=== PATIENT | female | born 1995 | race Caucasian/White ===

== ENCOUNTER 2016-06-08 10:23 | Emergency (ER) | payer OTHER ==
[2016-06-08 11:09] VITALS: BP 104/72
[2016-06-08] MEDS ORDERED: Ibuprofen TAB* 600 MG PO ONE (12:19)
--- NOTE | 2016-06-08 12:22 | UC ---
Throat Pain/Nasal James HPI - HPI Summary HPI Summary: 20 female presents with complaints of sore throat, fever, and headache that began yesterday. Patient has not taken any medications for her symptoms. She took her temperature at home and it was 101F. She has been eating and drinking. Denies cough, abdominal pain, vomiting and diarrhea. Has been exposed to strep. Denies PMHx. - History of Current Complaint Chief Complaint: UCGeneralIllness Stated Complaint: SORE THROAT,FEVER,NAUSEA Time Seen by Provider: 06/08/16 12:01 Hx Obtained From: Patient Hx Last Menstrual Period: 05/04/16 - on OCP ?: No Onset/Duration: Sudden Onset Severity: Moderate Pain Scale Used: 0-10 Numeric Cough: None Associated Signs & Symptoms: Positive: Dysphagia - Allergies/Home Medications Allergies/Adverse Reactions: Allergies Allergy/AdvReac Type Severity Reaction Status Date / Time Penicillins [PCN] Allergy Hives Verified 06/08/16 11:00 Home Medications: Home Medications Levonorgestrel-Ethinyl Estradi [Quartette] 1 tab PO DAILY 06/08/16 [History Confirmed 06/08/16] PMH/Surg Hx/FS Hx/Imm Hx Cardiovascular History Of: Denies: Hypertension Respiratory History Of: Denies: Asthma - Surgical History Surgical History: Yes Surgery Procedure, Year, and Place: wisdom teeth extraction - Family History Known Family History: Positive: None - Social History Alcohol Use: Weekly Substance Use Type: None Smoking Status (MU): Never Smoked Tobacco - Immunization History Vaccination Up to Date: Yes Review of Systems Constitutional: Fever, Chills Skin: Negative Eyes: Negative ENT: Sore Throat Respiratory: Negative Cardiovascular: Negative Gastrointestinal: Negative Motor: Negative Neurovascular: Negative Musculoskeletal: Negative Neurological: Headache Psychological: Negative All Other Systems Reviewed And Are Negative: Yes Physical Exam Triage Information Reviewed: Yes Appearance: No Pain Distress, Well-Nourished, Ill-Appearing - sitting in chair Vital Signs: Initial Vital Signs Temp 99.5 F 06/08/16 11:01 Pulse 149 06/08/16 11:01 Resp 16 06/08/16 11:01 BP 104/72 06/08/16 11:01 Pulse Ox 100 06/08/16 11:01 low grade fever, and tachycardia noted. monitored and re-taken. patient is suffering from streptococcal infection causing the tachycardia. Vital Signs Reviewed: Yes Eye Exam: Normal Eyes: Positive: Conjunctiva Clear ENT Exam: Normal ENT: Positive: Hearing grossly normal, Pharyngeal erythema, TMs normal, Tonsillar swelling, Tonsillar exudate, Other: - uvula midline, airway patent, tonsillar swelling non-obstructive. no sign of epiglottitis or peritonsillar abscess. Negative: Trismus, Muffled/hoarse voice Dental: Positive: Cervical Lymphadenopathy. Negative: Percussion Tenderness @ Neck: Positive: Supple, Nontender Respiratory: Positive: Chest non-tender, Lungs clear, Normal breath sounds, No respiratory distress, No accessory muscle use Cardiovascular: Positive: RRR, No Murmur, Pulses Normal, Brisk Capillary Refill Abdominal Exam: Normal Abdomen Description: Positive: Nontender, No Organomegaly, Soft Bowel Sounds: Positive: Present Musculoskeletal: Positive: Strength Intact, ROM Intact, No Edema Neurological: Positive: Alert Psychological Exam: Normal Skin Exam: Normal Throat Pain/Nasal Course/Dx - Course Course Of Treatment: strep culture obtained and positive. given ibuprofen for fever/discomfort. antibiotic, continue ibuprofen/tylenol, fluids. aware of worsening signs and symptoms and is in agreement of this plan. - Differential Dx/Diagnosis Differential Diagnosis/HQI/PQRI: Laryngitis, Mononucleosis, Otitis Media, Peritonsillar Abscess, Pharyngitis, Sinusitis, Tonsillitis, URI Provider Diagnoses: streptococcal pharyngitis Discharge - Discharge Plan Condition: Stable Disposition: HOME Prescriptions: Azithromycin TAB* [Zithromax TAB (Z-NOEMY) 250 mg #6 tabs] 2 tab PO .TODAY, THEN 1 DAILY #1 noemy Patient Education Materials: Strep Throat (ED) Forms: *School Release Referrals: Non Staff,Doctor [Primary Care Provider] - Additional Instructions: Take prescribed antibiotic until entire dose is finished, even if symptoms improve. Drink plenty of fluids and get plenty of rest. Do no share drinks and wash hands frequently, as strep is very contagious. Recommend taking probiotics in between antibiotic doses to replenish normal mary and swishing with salt water multiple times daily. Keep good oral hygiene. You may want to try Chloraseptic spray to help soothe sore throat. If symptoms worsen, do not improve or you have difficulty breathing or can not swallow seek medical attention immediately.
== END 2016-06-08 12:35 | disposition home or self-care (01) ==
LOC: UCCORT 10:23
DX: J02.0 Streptococcal pharyngitis (principal); Z88.0 Allergy status to penicillin
CPT/HCPCS: 87651; 99202; A9270-GY; G0463